=== PATIENT | female | born 1970 | race Caucasian/White ===

== ENCOUNTER → 2016-12-16 | Outpatient (CLI) | payer MEDICAID, BC ==
[2016-12-16 09:07] LABS: Basophils % (A) 1 %; CH 33.4; CHCM 34.3; Eosinophils # (A) 0.1 k/uL (0-0.7); Eosinophils % (A) 1 %; HCT 43.3 % (34.0-46.0); HDW 2.39; HGB 14.4 gm/dL (11.4-16.0); Luc # (Auto) 0.25; Luc % (Auto) 3; Lymphocytes % (A) 56 %; MCH 32.6 pg (25.0-35.0); MCHC 33.3 g/dL (31.0-37.0); MCV 97.9 fL (80.0-100.0); Mean Platelet Volume 7.3; Monocytes # (A) 0.4 k/uL (0-1.0); Monocytes % (A) 5 %; Neutrophils # (A) 3.2 k/uL (1.3-7.7); Neutrophils % (A) 35 %; RBC 4.42 m/uL (3.80-5.40); RDW 12.7 % (11.5-15.5); WBC (Perox) 9.13
[2016-12-16 09:09] LABS: ALT 22 U/L (9-52); AST 15 U/L (14-36); Alkaline Phosphatase 64 U/L (38-126); Anion Gap 8 mmol/L; Blood Urea Nitrogen 12 mg/dL (7-17); Calcium 9.4 mg/dL (8.4-10.2); Carbon Dioxide 27 mmol/L (22-30); Chloride 107 mmol/L (98-107); Glucose 86 mg/dL (74-99); Non-African American GFR(MDRD) >60 (>60 ml/min/1.73 sqM); Sodium 142 mmol/L (137-145); Total Bilirubin 0.6 mg/dL (0.2-1.3); Total Protein 6.6 g/dL (6.3-8.2)
[2016-12-16 10:08] LABS: Manual Review Performed; RBC Morphology Normal; Reactive Lymphocytes Present
== END | disposition home or self-care (01) ==
LOC: LABWHC1 08:23
PROVIDERS: ATTEND Nurse Practitioner Family
DX: R10.84 Generalized abdominal pain (principal); R31.9 Hematuria, unspecified
CPT/HCPCS: 36415; 80053; 85025

== ENCOUNTER → 2016-12-16 | Outpatient (CLI) | payer MEDICAID, BC ==
--- NOTE | 2016-12-16 09:04 | CT ---
EXAMINATION TYPE: CT abdomen pelvis wo con DATE OF EXAM: 12/16/2016 8:30 AM COMPARISON: 08/02/2015 HISTORY: 46-year-old female generalized abdominal pain. Patient complains of right flank pain x5 days . CT DLP: 253.3 mGycm. Automated exposure control for dose reduction was used. TECHNIQUE: Contiguous axial scanning of the abdomen and pelvis without IV contrast. Coronal and sagit bretin reconstructions performed. FINDINGS: Heart is normal size without pericardial effusion. Some strandy atelectasis at the posterior right sherrill ng base without pleural effusion. Noncontrast appearance of the liver, adrenal glands, spleen, and pancreas show no gross abnormality. Cholecystectomy clips are present. The left kidney is absent. Right kidney shows a small 6 mm fat density area at the lateral upper to m id pole that could represent a small AML. No contour deforming mass, nephrolithiasis, or hydronephros is.. No mesenteric or retroperitoneal lymphadenopathy. There are some nonspecific submucosal fat deposition along the ascending colon which could signify pr ior recurrent bouts of inflammation or could be neoplastic due to obesity. Scattered moderate stool b urden. No pericolonic inflammatory change. Bladder is nondistended. Uterus is visualized. Neither ovary is clearly seen and could be obscured by adjacent bowel loops. Pelvic phleboliths. No abnormal fluid collection in the pelvis or pelvic lymph adenopathy. Bones: Gentle dextroconvex curvature centered along the thoracolumbar junction could represent a mild scoliosis. No osseous destructive process. IMPRESSION: 1. Right kidney shows no evidence for nephrolithiasis or hydronephrosis. There may be a tiny 6 mm AM L at the upper to mid pole. 2. The left kidney is absent. Clinically correlate. 3. Submucosal fat deposition along the ascending colon can be seen in the setting of recurrent bouts of prior inflammation or could be idiopathic in the setting of obesity.
== END | disposition home or self-care (01) ==
LOC: RADCTMAIN 08:04
PROVIDERS: ATTEND Family Medicine
DX: R10.84 Generalized abdominal pain (principal); R31.9 Hematuria, unspecified; Z90.5 Acquired absence of kidney
CPT/HCPCS: 36415; 74176; 80053; 85025

== ENCOUNTER → 2016-12-29 | Outpatient (CLI) | payer MEDICAID, BC ==
--- NOTE | 2016-12-29 15:45 | MR ---
EXAMINATION TYPE: MR lumbar spine wo con DATE OF EXAM: 12/29/2016 3:15 PM COMPARISON: 04/21/2016 HISTORY: Lt leg is falling asleep TECHNIQUE: T1 and T2 axial and sagittal images of the lumbar spine are submitted. FINDINGS: There is no abnormal signal seen within the visualized spinal cord or paraspinal soft tissu es. Tarlov's cyst at the S2-3 level. Right kidney appears prominent in size likely representing compe nsatory hypertrophy with a empty left renal fossa. Small fat signal seen in the right kidney by CT sc an is not identified by MRI or included in the [id number]. At L1-2 there is mild hypertrophic change of the facets. No canal stenosis or foraminal encroachment. At L2-3 there is mild hypertrophic change of the facets. No canal stenosis or foraminal encroachment. At L3-4 there is mild hypertrophic change of the facets. No canal stenosis or foraminal encroachment. At L4-5 there is mild hypertrophic change of the facets. No canal stenosis or foraminal encroachment. At L5-S1 there is mild hypertrophic change of the facets. No canal stenosis or foraminal encroachment . IMPRESSION: 1. No disc herniation or canal stenosis. No foraminal encroachment. 2. Multilevel mild facet arthropathy.
== END | disposition home or self-care (01) ==
LOC: RADMRIMAIN 14:32
PROVIDERS: ATTEND Neurological Surgery
DX: M46.96 Unspecified inflammatory spondylopathy, lumbar region (principal); M54.16 Radiculopathy, lumbar region
CPT/HCPCS: 72148

== ENCOUNTER → 2017-03-21 | Outpatient (CLI) | payer MEDICAID, BC ==
--- NOTE | 2017-03-22 10:59 | MM ---
Reason for exam: screening (asymptomatic). Last mammogram was performed 3 years and 7 months ago. History: Patient is postmenopausal. Physical Findings: A clinical breast exam by your physician is recommended on an annual basis and results should be correlated with mammographic findings. MG 3D Screening Mammo W/Cad Bilateral CC and MLO view(s) were taken. Prior study comparison: August 29, 2013, bilateral digital screening mammo w/CAD. The breast tissue is heterogeneously dense. This may lower the sensitivity of mammography. There is no discrete abnormality. ASSESSMENT: Negative, BI-RAD 1 RECOMMENDATION: Routine screening mammogram of both breasts in 1 year.
== END | disposition home or self-care (01) ==
LOC: RADMAMWWP 14:57
PROVIDERS: ATTEND Obstetrics & Gynecology
DX: Z12.31 Encounter for screening mammogram for malignant neoplasm of breast (principal)
CPT/HCPCS: 77063; G0202

== ENCOUNTER 2017-03-30 06:56 | Day surgery (SDC) | payer MEDICAID, BC ==
[2017-03-28 15:57] VITALS: BMI 26.0
[~2017-03-30 06:56] MED LIST: LACTATED RINGERS 1,000 ML IV SCH
[2017-03-30] MEDS ORDERED: LACTATED RINGERS 1,000 ML IV ONE (07:10)
[2017-03-30 07:24] VITALS: TEMP 97.5
[2017-03-30] MEDS ORDERED: LIDOCAINE 1% INJ 10MG/ML (20 ML MDV) ONE (07:36)
[2017-03-30] MEDS ORDERED: PROPOFOL 10 MG/ML 20 ML VIAL IV ONE (07:36)
--- NOTE | 2017-03-30 08:08 | P.OP ---
Date of Procedure: 03/30/17 Preoperative Diagnosis: Change in bowel habits with constipation and right upper quadrant abdominal pain. Postoperative Diagnosis: Rectal polyp otherwise normal colonoscopy. Procedure(s) Performed: Colonoscopy and snare polypectomy. Implants: Anesthesia: MAC Surgeon: John Schreiber Estimated Blood Loss (ml): 0 Pathology: other (Rectal polyp) Condition: stable Disposition: same day Indications for Procedure: The patient is a 26 white female who's had a change in her bowel habits last 3- 4 months with increasing constipation and some right upper quadrant abdominal pain. CT was unremarkable. She did had a previous cholecystectomy appendectomy. Colonoscopy was recommended. Informed consent was obtained. Operative Findings: Small low rectal polyp about 3-4 mm in diameter. Description of Procedure: With the patient in the left lateral position rectal digital examination was normal there were no palpable masses. Mild internal hemorrhoids. The video colonoscope was inserted transanally and advanced all the way to the cecum which was entered and well visualized. Of procedure use a little difficult because of the tortuous redundant colon. The mucosa were thoroughly examined. Findings is a small low rectal polyp about 10 cm from the anal verge about 3-4 mm in diameter. This was removed completely with the snare cautery with good hemostasis. No other abnormalities were noted other than mild internal hemorrhoids. The patient tolerated procedure well without any evident complication. Recommendation. High-fiber diet. Continue with MiraLAX. May benefit from anti -inflammatory. Follow-up colonoscopy in about 5 years. We will see her back in the office in about a week so.
[2017-03-30 08:24] VITALS: BP 104/70; PULSE 73; RESP 18
== END 2017-03-30 08:44 | disposition home or self-care (01) ==
LOC: ORWHC2ENDO 06:56
PROVIDERS: ATTEND Surgery
DX: K62.1 Rectal polyp (principal); K59.00 Constipation, unspecified; K64.8 Other hemorrhoids; K63.89 Other specified diseases of intestine; R10.11 Right upper quadrant pain; Z88.0 Allergy status to penicillin; Z88.1 Allergy status to other antibiotic agents; Z88.5 Allergy status to narcotic agent; Z79.1 Long term (current) use of non-steroidal anti-inflammatories (NSAID); Z79.899 Other long term (current) drug therapy; Z90.49 Acquired absence of other specified parts of digestive tract
CPT/HCPCS: 88305; 45385; J2001; J2704

== ENCOUNTER → 2017-04-19 | Outpatient (CLI) | payer MEDICAID, BC ==
[2017-04-19 14:44] LABS: CH 33.7; CHCM 34.5; HCT 46.4 % (34.0-46.0); HGB 15.6 gm/dL (11.4-16.0); MCHC 33.7 g/dL (31.0-37.0); MCV 98.2 fL (80.0-100.0); Mean Platelet Volume 7.6; RBC 4.72 m/uL (3.80-5.40); RDW 12.4 % (11.5-15.5); WBC 9.4 k/uL (3.8-10.6)
== END | disposition home or self-care (01) ==
LOC: LABWHC1 13:56
PROVIDERS: ATTEND Nurse Practitioner Women's Health
DX: E78.00 Pure hypercholesterolemia, unspecified (principal)
CPT/HCPCS: 36415; 80061; 82306; 82607; 82747; 84439; 84443; 85027

== ENCOUNTER → 2017-10-24 | Outpatient (CLI) | payer MEDICAID, BC ==
[2017-10-24 10:48] LABS: Blood Urea Nitrogen 15 mg/dL (7-17)
--- NOTE | 2017-10-24 13:18 | CT ---
EXAMINATION TYPE: CT abdomen pelvis wo/w con DATE OF EXAM: 10/24/2017 COMPARISON: 12/16/2016 HISTORY: Benign neoplasm of right kidney CT DLP: 744.30 mGycm CONTRAST: CT scan of the abdomen and pelvis is performed without and with with Oral Contrast and without and wi th IV Contrast, patient injected with 100 mL of Omnipaque 300. FINDINGS: LUNG BASES-: No visible nodule. No infiltrate. LIVER/GB: Mild hepatic steatosis is noted. Cholecystectomy changes identified. No space occupying hepatic lesion. Biliary tree is of normal caliber. PANCREAS: No inflammation. No distinct mass. SPLEEN: No splenic enlargement. No lesion seen. ADRENALS: No nodule. No thickening. KIDNEYS/BLADDER: Left-sided nephrectomy changes without evidence for recurrent disease within the le ft renal fossa. Compensatory hypertrophy of the right kidney. Small angiomyolipoma measuring 6 mm mid pole right kidney is unchanged. No hydronephrosis. No nephrolithiasis. Urinary bladder grossly unrem arkable. BOWEL: Normal appendix. Normal bowel caliber. No inflammation. GENITAL ORGANS: No gross abnormality. LYMPH NODES: No greater than 1cm abdominal or pelvic lymph nodes are appreciated. AORTA: No significant abnormality. OSSEOUS STRUCTURES: No significant abnormality is seen. OTHER: No significant additional abnormality is seen. IMPRESSION: 1. Stable postsurgical changes left sided nephrectomy without evidence for recurrent or residual dise ase. 2. Small angiomyolipoma right kidney unchanged from prior study.
== END | disposition home or self-care (01) ==
LOC: RADCTMAIN 10:08
PROVIDERS: ATTEND Urology
DX: D30.01 Benign neoplasm of right kidney (principal); D17.71 Benign lipomatous neoplasm of kidney; Z90.5 Acquired absence of kidney
CPT/HCPCS: 82565; 84520; 74178; 36415; Q9967

== ENCOUNTER → 2017-11-29 | Outpatient (CLI) | payer MEDICAID, BC ==
--- NOTE | 2017-11-29 08:52 | XR ---
EXAMINATION TYPE: XR cervical spine w flex/ext DATE OF EXAM: 11/29/2017 COMPARISON: NONE HISTORY: Chronic neck pain TECHNIQUE: Six views are submitted including flexion-extension lateral views. FINDINGS: The odontoid is intact. There are no compression deformities. The prevertebral soft tissue structur es are within normal limits. There is mild narrowing of the disc space at levels C5-6 and C6-C7. Mil d bilateral foraminal encroachment at these level suspected. Mild facet arthropathy suspected. On extension there is a 2 mm retrolisthesis of C3 on C4 and C4 on C5. On flexion there is a 2 mm anterolisthesis of C3 on C4 and C4 on C5. IMPRESSION: 1. Multilevel degenerative disc disease with alignment alteration upon flexion and extension views as discussed above.
== END | disposition home or self-care (01) ==
LOC: RADXRMAIN 04:20
PROVIDERS: ATTEND Family Medicine
DX: M48.02 Spinal stenosis, cervical region (principal); M50.322 Other cervical disc degeneration at C5-C6 level; M43.12 Spondylolisthesis, cervical region
CPT/HCPCS: 72052

== ENCOUNTER → 2017-12-06 | Outpatient (CLI) | payer MEDICAID, BC ==
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
== END | disposition home or self-care (01) ==
LOC: RADMRIMAIN 21:30
PROVIDERS: ATTEND Neurological Surgery
DX: M99.71 Connective tissue and disc stenosis of intervertebral foramina of cervical region (principal); M47.12 Other spondylosis with myelopathy, cervical region
CPT/HCPCS: 72141

== ENCOUNTER → 2018-03-16 | Outpatient (CLI) | payer MEDICAID, BC ==
--- NOTE | 2018-03-18 08:10 | MR ---
EXAMINATION TYPE: MR thoracic spine wo con DATE OF EXAM: 03/16/2018 COMPARISON: NONE HISTORY: Mid Back pain x3-6 months TECHNIQUE: Multiplanar, multisequence images of the thoracic spine were acquired without intravenous contrast. FINDINGS: The vertebral bodies of the thoracic spine maintain normal vertebral body height and alignment. There is a slight exaggerated thoracic kyphosis. No suspicious extradural fluid collections are seen. Mild epidural lipomatosis. Bone marrow signal is within normal limits with no bone marrow edema seen. Mul tilevel disc desiccation is noted. Paraspinal muscles are unremarkable. At T1-T2, T2-3, T3-T4, and T4-T5 there is no significant disc disease, spinal canal stenosis or neura l foraminal narrowing. At T5-T6 and T6-T7 there is a small broad-based disc bulge without spinal canal stenosis or neurofora marichuy narrowing. At T7-T8 there is a small left paracentral disc herniation creating mild spinal canal stenosis but wi thout neural foraminal narrowing. At T8-T9 there is a very small right paracentral disc herniation without spinal canal stenosis or mariel ral foraminal narrowing. At T9-T10 and T10-T11 there is no significant disc disease, spinal canal stenosis or neural foraminal narrowing. At T11-T12 there is disc desiccation and a broad-based disc bulge without spinal canal stenosis or ne ural foraminal narrowing. Minimal facet arthropathy is seen at this level. At T12-L1 there is no significant disc disease, spinal canal stenosis or neural foraminal narrowing. IMPRESSION: 1. Small left paracentral disc herniation at T7-T8 creating mild spinal canal stenosis. 2. Very small right paracentral disc herniation at T8-T9 without spinal canal stenosis nor neural for aminal narrowing. 3. Mild multilevel degenerative disc disease of the thoracic spine as described above. 4. No evidence of vertebral body height loss or malalignment.
== END | disposition home or self-care (01) ==
LOC: RADMRIMAIN 20:05
PROVIDERS: ATTEND Neurological Surgery
DX: M48.04 Spinal stenosis, thoracic region (principal); M51.14 Intervertebral disc disorders with radiculopathy, thoracic region
CPT/HCPCS: 72146

== ENCOUNTER 2018-07-19 17:48 | Emergency (ER) | payer MEDICAID, BC ==
[2018-07-19 17:52] VITALS: TEMP 97.8
[2018-07-19] MEDS ORDERED: SODIUM CHLORIDE 0.9% 1,000 ML IV STA (18:06)
--- NOTE | 2018-07-19 18:30 | ED ---
General Adult HPI - General Chief complaint: Chest Pain Stated complaint: Chest pain Time Seen by Provider: 07/19/18 17:53 Source: patient, RN notes reviewed, old records reviewed Mode of arrival: ambulatory Limitations: no limitations - History of Present Illness Initial comments: This is a 47-year-old female the ER for evaluation of chest pain. Patient has no cardiac risk factors no high blood pressure control diabetes or any other causes of chest pain. Patient has no change in chest pain currently. Patient has pain 3 days. No travel history no sick contacts no modifying factors for pain - Related Data Home Medications Medication Instructions Recorded Confirmed Escitalopram [Lexapro] 5 mg PO BID@04,1630 07/19/18 07/19/18 Allergies Allergy/AdvReac Type Severity Reaction Status Date / Time Penicillins Allergy Rash/Hives Verified 07/19/18 18:14 erythromycin base AdvReac Nausea & Verified 07/19/18 18:14 Vomiting propoxyphene AdvReac Nausea & Verified 07/19/18 18:14 [From Darvocet-N 100] Vomiting tramadol AdvReac Nausea & Verified 07/19/18 18:14 Vomiting Review of Systems ROS Statement: Those systems with pertinent positive or pertinent negative responses have been documented in the HPI. ROS Other: All systems not noted in ROS Statement are negative. Past Medical History Additional Past Medical History / Comment(s): Left nephrectomy at age 2. History of Any Multi-Drug Resistant Organisms: None Reported Past Surgical History: Section, Cholecystectomy, Orthopedic Surgery Additional Past Surgical History / Comment(s): oopherectomy Past Anesthesia/Blood Transfusion Reactions: No Reported Reaction Past Psychological History: Anxiety Smoking Status: Former smoker Past Alcohol Use History: None Reported Past Drug Use History: None Reported - Past Family History Sister(s) Family Medical History: Cancer Additional Family Medical History / Comment(s): Patient is adopted and is unaware of parents medical history. Patient has 2 boys that are living and well. General Exam Limitations: no limitations General appearance: alert, in no apparent distress Head exam: Present: atraumatic, normocephalic, normal inspection Eye exam: Present: normal appearance, PERRL, EOMI. Absent: scleral icterus, conjunctival injection, periorbital swelling ENT exam: Present: normal exam, mucous membranes moist Neck exam: Present: normal inspection. Absent: tenderness, meningismus, lymphadenopathy Respiratory exam: Present: normal lung sounds bilaterally. Absent: respiratory distress, wheezes, rales, rhonchi, stridor Cardiovascular Exam: Present: regular rate, normal rhythm, normal heart sounds. Absent: systolic murmur, diastolic murmur, rubs, gallop, clicks GI/Abdominal exam: Present: soft, normal bowel sounds. Absent: distended, tenderness, guarding, rebound, rigid Extremities exam: Present: normal inspection, full ROM, normal capillary refill. Absent: tenderness, pedal edema, joint swelling, calf tenderness Back exam: Present: normal inspection Neurological exam: Present: alert, oriented X3, CN II-XII intact Psychiatric exam: Present: normal affect, normal mood Skin exam: Present: warm, dry, intact, normal color. Absent: rash Course Vital Signs 07/19/18 07/19/18 07/19/18 17:50 18:30 18:58 Temperature 97.8 F Pulse Rate 68 65 70 Respiratory 18 18 18 Rate Blood Pressure 141/83 144/62 151/98 O2 Sat by Pulse 99 97 97 Oximetry 07/19/18 07/19/18 19:08 20:37 Temperature Pulse Rate 73 75 Respiratory 18 16 Rate Blood Pressure 138/80 138/63 O2 Sat by Pulse 99 98 Oximetry EKG Findings - EKG Comments: EKG Findings:: EKG shows bradycardia rate of 60, VT 108, QRS 92, QTc 428 Medical Decision Making - Medical Decision Making [age] female the ER for evaluation of chest pain atypical chest pain with no cardiac risk. Patient is CAT scan lab work and EKG are normal. Patient will be discharged home - Lab Data Result diagrams: 07/19/18 18:09 07/19/18 18:09 Lab Results 07/19/18 07/19/18 07/19/18 Range/Units 18:09 18:09 18:09 WBC 6.5 (3.8-10.6) k/uL RBC 4.39 (3.80-5.40) m/uL Hgb 14.0 (11.4-16.0) gm/dL Hct 42.5 (34.0-46.0) % MCV 96.9 (80.0-100.0) fL MCH 31.8 (25.0-35.0) pg MCHC 32.8 (31.0-37.0) g/dL RDW 12.5 (11.5-15.5) % Plt Count 299 (150-450) k/uL Neutrophils % 44 % Lymphocytes % 45 % Monocytes % 6 % Eosinophils % 2 % Basophils % 1 % Neutrophils # 2.8 (1.3-7.7) k/uL Lymphocytes # 3.0 (1.0-4.8) k/uL Monocytes # 0.4 (0-1.0) k/uL Eosinophils # 0.1 (0-0.7) k/uL Basophils # 0.0 (0-0.2) k/uL PT (9.0-12.0) sec INR (<1.2) APTT (22.0-30.0) sec D-Dimer (<0.60) mg/L FEU Sodium 138 (137-145) mmol/L Potassium 4.6 (3.5-5.1) mmol/L Chloride 108 H (98-107) mmol/L Carbon Dioxide 22 (22-30) mmol/L Anion Gap 8 mmol/L BUN 17 (7-17) mg/dL Creatinine 0.68 (0.52-1.04) mg/dL Est GFR (CKD-EPI)AfAm >90 (>60 ml/min/1.73 sqM) Est GFR (CKD-EPI)NonAf >90 (>60 ml/min/1.73 sqM) Glucose 85 (74-99) mg/dL Calcium 9.8 (8.4-10.2) mg/dL Magnesium 1.9 (1.6-2.3) mg/dL Total Bilirubin 0.4 (0.2-1.3) mg/dL AST 27 (14-36) U/L ALT 34 (9-52) U/L Alkaline Phosphatase 74 (38-126) U/L Total Creatine Kinase 86 (30-135) U/L CK-MB (CK-2) 0.7 (0.0-2.4) ng/mL CK-MB (CK-2) Rel Index 0.8 Troponin I <0.012 (0.000-0.034) ng/mL NT-Pro-B Natriuret Pep pg/mL Total Protein 6.9 (6.3-8.2) g/dL Albumin 4.1 (3.5-5.0) g/dL Lipase 73 (23-300) U/L 07/19/18 07/19/18 Range/Units 18:09 18:09 WBC (3.8-10.6) k/uL RBC (3.80-5.40) m/uL Hgb (11.4-16.0) gm/dL Hct (34.0-46.0) % MCV (80.0-100.0) fL MCH (25.0-35.0) pg MCHC (31.0-37.0) g/dL RDW (11.5-15.5) % Plt Count (150-450) k/uL Neutrophils % % Lymphocytes % % Monocytes % % Eosinophils % % Basophils % % Neutrophils # (1.3-7.7) k/uL Lymphocytes # (1.0-4.8) k/uL Monocytes # (0-1.0) k/uL Eosinophils # (0-0.7) k/uL Basophils # (0-0.2) k/uL PT 9.7 (9.0-12.0) sec INR 1.0 (<1.2) APTT 23.1 (22.0-30.0) sec D-Dimer 0.24 (<0.60) mg/L FEU Sodium (137-145) mmol/L Potassium (3.5-5.1) mmol/L Chloride (98-107) mmol/L Carbon Dioxide (22-30) mmol/L Anion Gap mmol/L BUN (7-17) mg/dL Creatinine (0.52-1.04) mg/dL Est GFR (CKD-EPI)AfAm (>60 ml/min/1.73 sqM) Est GFR (CKD-EPI)NonAf (>60 ml/min/1.73 sqM) Glucose (74-99) mg/dL Calcium (8.4-10.2) mg/dL Magnesium (1.6-2.3) mg/dL Total Bilirubin (0.2-1.3) mg/dL AST (14-36) U/L ALT (9-52) U/L Alkaline Phosphatase (38-126) U/L Total Creatine Kinase (30-135) U/L CK-MB (CK-2) (0.0-2.4) ng/mL CK-MB (CK-2) Rel Index Troponin I (0.000-0.034) ng/mL NT-Pro-B Natriuret Pep 118 pg/mL Total Protein (6.3-8.2) g/dL Albumin (3.5-5.0) g/dL Lipase (23-300) U/L - Radiology Data Radiology results: report reviewed (CT angio is negative), image reviewed Disposition Clinical Impression: Chest pain Disposition: HOME SELF-CARE Condition: Good Instructions: Chest Pain (ED), Costochondritis (ED) Is patient prescribed a controlled substance at d/c from ED?: No Referrals: Carlos Lundy Jr, DO [Primary Care Provider] - 1-2 days
--- NOTE | 2018-07-19 18:45 | XR ---
EXAMINATION TYPE: XR chest 2V DATE OF EXAM: 07/19/2018 COMPARISON: NONE HISTORY: Chest pain TECHNIQUE: Frontal and lateral views of the chest are obtained. FINDINGS: Heart and mediastinum are normal. Lungs are clear. Diaphragm is normal. Bony thorax appear s normal. There are chest leads. IMPRESSION: Normal chest.
[2018-07-19 18:52] LABS: Basophils % (A) 1 %; Eosinophils # (A) 0.1 k/uL (0-0.7); Eosinophils % (A) 2 %; HCT 42.5 % (34.0-46.0); Lymphocytes % (A) 45 %; MCH 31.8 pg (25.0-35.0); MCHC 32.8 g/dL (31.0-37.0); MCV 96.9 fL (80.0-100.0); Mean Platelet Volume 6.8; Monocytes # (A) 0.4 k/uL (0-1.0); Monocytes % (A) 6 %; Neutrophils # (A) 2.8 k/uL (1.3-7.7); Neutrophils % (A) 44 %; Platelet Count 299 k/uL (150-450); RBC 4.39 m/uL (3.80-5.40); RDW 12.5 % (11.5-15.5); WBC 6.5 k/uL (3.8-10.6)
[2018-07-19] MEDS ORDERED: NITROGLYCERIN SL TABS 0.4 MG TAB SUBLINGUAL STA (18:59)
[2018-07-19 19:02] LABS: ALT 34 U/L (9-52); AST 27 U/L (14-36); Albumin 4.1 g/dL (3.5-5.0); Alkaline Phosphatase 74 U/L (38-126); Anion Gap 8 mmol/L; Blood Urea Nitrogen 17 mg/dL (7-17); Calcium 9.8 mg/dL (8.4-10.2); Carbon Dioxide 22 mmol/L (22-30); Chloride 108 mmol/L (98-107); Glucose 85 mg/dL (74-99); Lipase 73 U/L (23-300); Magnesium 1.9 mg/dL (1.6-2.3); Potassium 4.6 mmol/L (3.5-5.1); Sodium 138 mmol/L (137-145); Total Bilirubin 0.4 mg/dL (0.2-1.3); Total Protein 6.9 g/dL (6.3-8.2)
[2018-07-19 19:05] LABS: Creatine Kinase 86 U/L (30-135)
[2018-07-19 19:07] LABS: D-Dimer 0.24 mg/L FEU (<0.60); Partial Thromboplastin Time 23.1 sec (22.0-30.0); Prothrombin Time 9.7 sec (9.0-12.0)
[2018-07-19 19:18] LABS: Creatine Kinase MB 0.7 ng/mL (0.0-2.4); Troponin I <0.012 ng/mL (0.000-0.034)
[2018-07-19] MEDS ORDERED: KETOROLAC 30 MG/ML 1 ML VIAL IVP STA (19:34)
--- NOTE | 2018-07-19 20:20 | CT ---
EXAMINATION TYPE: CT angio chest DATE OF EXAM: 07/19/2018 7:54 PM COMPARISON: None HISTORY: Chest pain and shortness of breath x3 days. CT DLP: 255.3 mGycm Automated exposure control for dose reduction was used. CONTRAST: CTA scan of the thorax is performed with IV Contrast, patient injected with 60ml mL of Isovue 370, pu lmonary embolism protocol. There are 3-D post processed images.. FINDINGS: There is slight coarsening of interstitial pulmonary markings in the posterior lung laurent. There is no pulmonary consolidation. There is no evidence of a pulmonary mass. There is no pleural effusion. T here is no mediastinal adenopathy. There are no hilar masses. Heart size is normal. There is no peric ardial effusion. The bony thorax is intact. There are clips from cholecystectomy. Upper abdominal sof t tissues are unremarkable. Thoracic aorta appears normal. There is no evidence of aneurysm or dissection. There is normal contra st opacification of the pulmonary arteries. There are no filling defects. IMPRESSION: COARSE INTERSTITIAL DENSITY IN THE POSTERIOR LUNG LAURENT CONSISTENT WITH SUBSEGMENTAL ATELECTASIS. NO EVIDENCE OF PULMONARY EMBOLISM.
[2018-07-19 20:39] VITALS: BP 138/63; PULSE 75; RESP 16
== END 2018-07-19 20:38 | disposition home or self-care (01) ==
LOC: EC 17:48
DX: R07.89 Other chest pain (principal); F41.9 Anxiety disorder, unspecified; Z87.891 Personal history of nicotine dependence; Z90.5 Acquired absence of kidney; Z90.49 Acquired absence of other specified parts of digestive tract; Z90.721 Acquired absence of ovaries, unilateral; Z98.890 Other specified postprocedural states; Z79.899 Other long term (current) drug therapy; Z88.0 Allergy status to penicillin; Z88.1 Allergy status to other antibiotic agents; Z88.5 Allergy status to narcotic agent
CPT/HCPCS: 36415; 93005; 85379; 83880; 80053; 82550; 82553; 83690; 83735; 84484; 85025; 85610; 85730; 71046; 71275; 99285; 96360; 96361 ×2; J1885; Q9967

== ENCOUNTER → 2018-10-17 | Outpatient (CLI) | payer MEDICAID, BC ==
--- NOTE | 2018-10-18 14:40 | MM ---
Reason for exam: screening (asymptomatic). Last mammogram was performed 1 year and 7 months ago. History: Patient is postmenopausal. Physical Findings: A clinical breast exam by your physician is recommended on an annual basis and results should be correlated with mammographic findings. MG 3D Screening Mammo W/Cad Bilateral CC and MLO view(s) were taken. Prior study comparison: March 21, 2017, bilateral MG 3d screening mammo w/cad. August 29, 2013, bilateral digital screening mammo w/CAD. The breast tissue is heterogeneously dense. This may lower the sensitivity of mammography. There is no discrete abnormality. No significant changes when compared with prior studies. ASSESSMENT: Negative, BI-RAD 1 RECOMMENDATION: Routine screening mammogram of both breasts in 1 year.
== END ==
LOC: RADMAMWWP 16:36
PROVIDERS: ATTEND Family Medicine
DX: Z12.31 Encounter for screening mammogram for malignant neoplasm of breast (principal)
CPT/HCPCS: 77063; 77067

== ENCOUNTER → 2018-10-17 | Outpatient (CLI) | payer MEDICAID, BC ==
[2018-10-17 16:42] LABS: HCT 41.7 % (34.0-46.0); HGB 13.6 gm/dL (11.4-16.0); MCV 94.7 fL (80.0-100.0); RBC 4.41 m/uL (3.80-5.40); WBC 8.2 k/uL (3.8-10.6)
[2018-10-17 16:43] LABS: Basophils # (A) 0.1 k/uL (0-0.2); Basophils % (A) 1 %; Eosinophils # (A) 0.1 k/uL (0-0.7); Eosinophils % (A) 1 %; Lymphocytes # (A) 2.3 k/uL (1.0-4.8); Lymphocytes % (A) 28 %; MCH 30.9 pg (25.0-35.0); MCHC 32.7 g/dL (31.0-37.0); Mean Platelet Volume 6.9; Monocytes # (A) 0.5 k/uL (0-1.0); Monocytes % (A) 6 %; Neutrophils # (A) 5.1 k/uL (1.3-7.7); Neutrophils % (A) 62 %; Platelet Count 264 k/uL (150-450); RDW 12.6 % (11.5-15.5)
[2018-10-18 02:59] LABS: Albumin 4.1 g/dL (3.80-4.90); Albumin/Globulin Ratio 2.41 (1.20-2.10); Anion Gap 11.1 mmol/L (4.00-12.00); Calcium 8.9 mg/dL (8.7-10.3); Carbon Dioxide 20.9 mmol/L (21.6-31.8); Globulin 1.7 g/dL (1.6-3.3); LDL Cholesterol,Calculated 104.2 mg/dL (0.0-131.0); Potassium 4.1 mmol/L (3.5-5.5); Total Bilirubin 0.5 mg/dL (0.3-1.2); Total Protein 5.8 g/dL (6.2-8.2); VLDL Calculation 38.8 mg/dL (5.00-40.00)
[2018-10-18 03:06] LABS: T4, Free (Free Thyroxine) 0.9 ng/dL (0.80-1.80)
== END | disposition home or self-care (01) ==
LOC: LABWHC1 16:23
PROVIDERS: ATTEND Nurse Practitioner Women's Health
DX: Z00.00 Encounter for general adult medical examination without abnormal findings (principal); R61 Generalized hyperhidrosis; R00.2 Palpitations; N95.1 Menopausal and female climacteric states
CPT/HCPCS: 36415; 80053; 80061; 84439; 84443; 85025

== ENCOUNTER → 2018-12-20 | Outpatient (CLI) | payer MEDICAID, BC ==
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
== END ==
LOC: RADMRIMAIN 17:10
PROVIDERS: ATTEND Neurological Surgery
DX: M99.71 Connective tissue and disc stenosis of intervertebral foramina of cervical region (principal); M50.21 Other cervical disc displacement, high cervical region; M47.816 Spondylosis without myelopathy or radiculopathy, lumbar region
CPT/HCPCS: 72141; 72148; 82565; 84520

== ENCOUNTER → 2020-12-04 | Outpatient (CLI) | payer BC ==
--- NOTE | 2020-12-08 13:22 | MM ---
Reason for exam: screening (asymptomatic). Last mammogram was performed 2 years and 2 months ago. History: Patient is postmenopausal. Took hormonal contraceptives for 20 years beginning at age 15. Physical Findings: A clinical breast exam by your physician is recommended on an annual basis and results should be correlated with mammographic findings. MG 3D Screening Mammo W/Cad Bilateral CC and MLO view(s) were taken. Prior study comparison: October 17, 2018, bilateral MG 3d screening mammo w/cad. March 21, 2017, bilateral MG 3d screening mammo w/cad. There are scattered fibroglandular densities. Lateral left CC asymmetric density becomes less defined on 3D images and shows no MLO correlate. Superimposition shadow is suggested. Precautionary 6 month follow up mammogram recommended. ASSESSMENT: Probably benign, BI-RAD 3 RECOMMENDATION: Follow-up diagnostic mammogram of the left breast in 6 months. (3D)
== END | disposition home or self-care (01) ==
LOC: RADMAMWWP 16:09
PROVIDERS: ATTEND Obstetrics & Gynecology
DX: Z12.31 Encounter for screening mammogram for malignant neoplasm of breast (principal)
CPT/HCPCS: 77063; 77067

== ENCOUNTER 2021-02-27 11:41 | Emergency (ER) | payer BC ==
[2021-02-27 11:55] VITALS: BP 124/75; PULSE 71; RESP 16; TEMP 98.7
--- NOTE | 2021-02-27 12:34 | ED ---
General Adult HPI - General Chief complaint: Animal Bite Stated complaint: Cat bite/vaccine reaction Time Seen by Provider: 02/27/21 12:19 Source: patient Mode of arrival: ambulatory Limitations: no limitations - History of Present Illness Initial comments: Patient is a 50-year-old female presenting to the emergency department with complaints of a possible infected cat bite to her left leg. Patient states she got bit by her cat one week ago, she has been keeping it clean, covered and using topical antibiotics but feels like she is getting some aches in her left leg. Patient states she also received her second dose of Covid vaccine yesterday and is complaining of having body aches and feeling feverish. She states she did take her temperature and she does not have a fever but feels feverish, chills. She did take a Tylenol with did seem to help. She was concerned that the cat bite could be causing her symptoms versus Covid vaccine reaction. She denies any chest pressure was of breath, no difficulty breathing. She denies any nausea or vomiting. She has no further complaints at this time. Upon arrival to the ER her vitals are stable. - Related Data Home Medications Medication Instructions Recorded Confirmed Escitalopram [Lexapro] 5 mg PO BID@04,1630 07/19/18 07/19/18 Previous Rx's Medication Instructions Recorded Amoxicillin/Potassium Clav 1 tab PO BID 5 Days #10 tab 02/27/21 [Augmentin 875-125 Tablet] Allergies Allergy/AdvReac Type Severity Reaction Status Date / Time Penicillins Allergy Rash/Hives Verified 02/27/21 11:55 erythromycin base AdvReac Nausea & Verified 02/27/21 11:55 Vomiting propoxyphene AdvReac Nausea & Verified 02/27/21 11:55 [From Darvocet-N 100] Vomiting tramadol AdvReac Nausea & Verified 02/27/21 11:55 Vomiting Review of Systems ROS Statement: Those systems with pertinent positive or pertinent negative responses have been documented in the HPI. ROS Other: All systems not noted in ROS Statement are negative. Past Medical History Past Medical History: No Reported History Additional Past Medical History / Comment(s): Left nephrectomy at age 2. History of Any Multi-Drug Resistant Organisms: None Reported Past Surgical History: Section, Cholecystectomy, Orthopedic Surgery Additional Past Surgical History / Comment(s): oopherectomy, Left nephrectomy at age 2. Past Anesthesia/Blood Transfusion Reactions: No Reported Reaction Past Psychological History: Anxiety Smoking Status: Former smoker Past Alcohol Use History: Rare Past Drug Use History: None Reported - Past Family History Sister(s) Family Medical History: Cancer Additional Family Medical History / Comment(s): Patient is adopted and is unaware of parents medical history. Patient has 2 boys that are living and well. General Exam - General Exam Comments Initial Comments: GENERAL: Patient is well-developed and well-nourished. Patient is nontoxic and in no acute distress. HEAD: Atraumatic, normocephalic. EYES: Pupils equal round and reactive to light, extraocular movements intact, sclera anicteric, conjunctiva are normal. Eyelids were unremarkable. ENT: TMs normal, nares patent, oropharynx clear without exudates. Moist mucous membranes. NECK: Normal range of motion, supple without lymphadenopathy or JVD. LUNGS: Unlabored respirations. Breath sounds clear to auscultation bilaterally and equal. No wheezes rales or rhonchi. HEART: Regular rate and rhythm without murmurs, rubs or gallops. ABDOMEN: Soft, nontender, normoactive bowel sounds. No guarding, no rebound. No masses appreciated. : Deferred MUSCULOSKELETAL: Normal extremities with adequate strength and normal range of motion, no pitting or edema. No clubbing or cyanosis. NEUROLOGICAL: Patient is alert and oriented x 3. Motor and sensory are also intact. Cranial nerves II through XII grossly intact. Symmetrical smile. Normal speech, normal gait. PSYCH: Normal mood, normal affect. SKIN: Warm, Dry, normal turgor, no rashes. Patient has a healing wound on her left lateral lower leg from a cat bite. There is some mild drainage, some very mild surrounding erythema but no spreading erythema, no streaks. No warmth to the area. Limitations: no limitations Course Vital Signs 02/27/21 11:51 Temperature 98.7 F Pulse Rate 71 Respiratory 16 Rate Blood Pressure 124/75 O2 Sat by Pulse 96 Oximetry Medical Decision Making - Medical Decision Making Patient is a 50-year-old female here with concerns of a cat bite she sustained one week ago. Her vital signs are stable, no fevers. She also received the Covid vaccines, second dose yesterday. Generalized body aches. The Bite wound could be very mildly infected, no active drainage, no spreading erythema or streaks. Patient will be started on Augmentin to prevent any further and infection. I also recommended continuing to alternate between Tylenol and ibuprofen for her symptoms. Patient is stable for discharge. Patient is in agreement with this plan of care. Return parameters were discussed with the patient and they verbalized understanding. Case discussed with Dr. Galvin. Disposition Clinical Impression: Cat bite, Body aches after vaccination Disposition: HOME SELF-CARE Condition: Stable Instructions (If sedation given, give patient instructions): Animal Bite (ED) Additional Instructions: Please return to the Emergency Department if symptoms worsen or any other concerns. Continue to alternate between Tylenol and Motrin for symptoms. Take antibiotic as prescribed. Follow-up with your PCP. Prescriptions: Amoxicillin/Potassium Clav [Augmentin 875-125 Tablet] 1 tab PO BID 5 Days #10 tab Is patient prescribed a controlled substance at d/c from ED?: No Referrals: Carlos Lundy Jr, [Primary Care Provider] - 1-2 days Time of Disposition: 12:34
== END 2021-02-27 12:53 | disposition home or self-care (01) ==
LOC: EC 11:41
DX: S81.852D Open bite, left lower leg, subsequent encounter (principal); R52 Pain, unspecified; R68.83 Chills (without fever); T50.B95A Adverse effect of other viral vaccines, initial encounter; F41.9 Anxiety disorder, unspecified; Z87.891 Personal history of nicotine dependence; Z88.0 Allergy status to penicillin; W55.01XD Bitten by cat, subsequent encounter
CPT/HCPCS: 99283

== ENCOUNTER → 2021-09-11 | Outpatient (CLI) | payer BC ==
--- NOTE | 2021-09-11 18:33 | MR ---
EXAMINATION TYPE: MR lumbar spine wo con DATE OF EXAM: 09/11/2021 COMPARISON: 12/12/2018 HISTORY: Low back pain for 3 months Multiplanar multiecho imaging of the lumbar spine without contrast. Lumbar vertebra have normal alignment. Disc spaces are fairly normal. Posterior elements are intact. Neural foramina are widely patent. Lumbar nerve roots appear normal. Disks have normal signal pattern . There is no evidence of lumbar disc herniation. Posterior elements are intact. There is no lumbar p araspinal mass. I see no bony destructive process. Left kidney is absent. There is compensatory hyper trophy of the right kidney. There are sacral cyst at the S2-S3 level noted. IMPRESSION: Negative MR scan of the lumbar spine. No change.
== END ==
LOC: RADMRIMAIN 09:11
PROVIDERS: ATTEND Neurological Surgery
DX: M54.50 Low back pain, unspecified (principal)
CPT/HCPCS: 72148

== ENCOUNTER → 2021-10-30 | Outpatient (CLI) | payer BC, OTHER | END | disposition home or self-care (01) | LOC: LABWHC1 14:56 | PROVIDERS: ATTEND Emergency Medicine | DX: Z20.822 Contact with and (suspected) exposure to COVID-19 (principal) | CPT/HCPCS: 87635 ==

== ENCOUNTER → 2021-11-24 | Outpatient (CLI) | payer BC ==
--- NOTE | 2021-11-25 06:27 | MR ---
EXAMINATION TYPE: MR cspine/tspine wo con DATE OF EXAM: 11/24/2021 COMPARISON: MRI cervical spine December 20, 2018. MRI thoracic spine March 16, 2018 HISTORY: Ataxic gait TECHNIQUE: Multiplanar, multisequence imaging of cervical and thoracic spine are is performed without contrast FINDINGS: Cervical spine: Sagittal images of the cervical spine show the craniocervical junction to remain within normal limits . The cervical and upper thoracic spinal cord remains normal in course, caliber, and signal. Verteb ral alignment is stable. The vertebral body and intravertebral disk heights remaining normal. The aline ne marrow signal intensity remains within normal limits. Axial images show the C2-C3 level to remain within normal limits. Axial images at C3-C4 level redemonstrate a broad-based left paracentral/foraminal disc protrusion wi th uncovertebral facet degenerative changes effacing the anterolateral thecal sac and causing mild le ft greater than right neural foraminal narrowing, no significant change from prior study on axial debo ges. Axial images at C4-C5 level show uncovertebral facet degenerative changes bilaterally and minimal bro ad disc bulge minimally effacing anterior thecal sac and causing mild bilateral neural foraminal narr owing, no significant change from prior. Axial images at C5-C6 level redemonstrate mild broad-based posterior disc protrusion effacing the ant erior thecal sac and causing mild to moderate left greater than right bilateral neural foraminal narr owing, no significant change from prior. Axial images at C6-C7 level show left foraminal disc protrusion minimally effacing the anterolateral thecal sac and causing moderate to advanced left-sided neural foraminal narrowing on axial images 15 and 16, right-sided neural foramina is patent. No significant change from prior. Axial images at C7-T1 level remain within normal limits. IMPRESSION: Multilevel degenerative changes as detailed above without significant change from prior M RI. Thoracic spine: S-shaped scoliotic curvature redemonstrated on coronal images. Spinal cord shows normal caliber and signal as it courses the thoracic spine. Vertebral body heights remain satisfactory. Redemonstration of mild to moderate multilevel anterior spurring and some scattered mild areas of disc space narrowi ng. Bone marrow signal intensity is preserved. Tiny posterior disc herniations efface the anterior th ecal sac at several levels for reference T7-T8 level image 7 series 1401. Axial images at T2-T3 level show tiny right paracentral disc protrusion minimally effacing anterolate ral thecal sac axial image 15 new from prior. Axial images at T5-T6 and T6-T7 levels show tiny central disc protrusions minimally effacing anterior thecal sac, no significant change from prior. Axial images at T7-T8 level redemonstrate left paracentral disc protrusion effacing the anterolateral thecal sac, no significant change from prior. Axial images at T8-T9 level redemonstrate tiny right paracentral disc protrusion mildly effacing the anterolateral thecal sac thought stable. Axial images at T11-T12 level redemonstrate mild broad disc bulge minimally effacing anterior thecal sac. Remainder axial levels remain within normal limits. Visualized upper abdomen and thorax show no obvious new abnormality. IMPRESSION: Multilevel degenerative changes as detailed above, largest disc herniation redemonstrated T7-T8 level. No significant change or degenerative progression from 2018 MRI
== END | disposition home or self-care (01) ==
LOC: RADMRIMAIN 17:12
PROVIDERS: ATTEND Neurological Surgery
DX: M51.24 Other intervertebral disc displacement, thoracic region (principal); M47.814 Spondylosis without myelopathy or radiculopathy, thoracic region; M47.812 Spondylosis without myelopathy or radiculopathy, cervical region
CPT/HCPCS: 72141; 72146

== ENCOUNTER → 2022-09-29 | Outpatient (CLI) | payer BC ==
--- NOTE | 2022-09-30 08:43 | MM ---
Reason for Exam: Screening (asymptomatic). Last mammogram was performed 1 year(s) and 10 month(s) ago. Patient History: Menarche at age 12. First Full-Term at age 22. Left ovary removed at age 37. Right ovary removed at age 37. Postmenopausal. Hormonal Contraceptives, starting at age 15 for 20 years. Estrogen and Progesterone, starting at age 51. Risk Values: Rosemary 5 year model risk: 0.9%. NCI Lifetime model risk: 7.8%. Prior Study Comparison: 03/21/2017 Bilateral Screening Mammogram, [facility]. 10/17/2018 Bilateral Screening Mammogram, [facility]. 12/04/2020 Bilateral Screening Mammogram, [facility]. Tissue Density: The breast tissue is heterogeneously dense. This may lower the sensitivity of mammography. Findings: Analyzed By CAD. There is no suspicious group of microcalcifications or new suspicious mass in either breast. Overall Assessment: Benign, BI-RAD 2 Management: Screening Mammogram of both breasts in 1 year. A clinical breast exam by your physician is recommended on an annual basis and results should be correlated with mammographic findings. Electronically signed and approved by: Talon Henderson D.O.
== END | disposition home or self-care (01) ==
LOC: RADMAMWWP 16:51
PROVIDERS: ATTEND Obstetrics & Gynecology
DX: Z12.31 Encounter for screening mammogram for malignant neoplasm of breast (principal); Z78.0 Asymptomatic menopausal state
CPT/HCPCS: 77063; 77067

== ENCOUNTER → 2022-10-06 | Outpatient (CLI) | payer BC ==
[2022-10-06 19:38] LABS: Basophils # (A) 0.08 X 10*3/uL (0.00-0.10); Basophils % (A) 1.1 %; Eosinophils # (A) 0.31 X 10*3/uL (0.04-0.35); Eosinophils % (A) 4.2 %; HCT 43.7 % (37.2-46.3); HGB 14.1 g/dL (12.0-15.0); Immature Grans, Automated 0.5 %; Lymphocytes # (A) 2.88 X 10*3/uL (0.90-5.00); Lymphocytes % (A) 38.9 %; MCH 31.3 pg (27.0-32.0); MCHC 32.3 g/dL (32.0-37.0); MCV 97.1 fL (80.0-97.0); Mean Platelet Volume 10.3 fL (9.5-12.2); Monocytes # (A) 0.47 X 10*3/uL (0.20-1.00); Monocytes % (A) 6.3 %; NRBC Per 100 WBC 0 /100 WBCS (0.0-0.0); Neutrophils # (A) 3.63 X 10*3/uL (1.80-7.70); Platelet Count 367 X 10*3/uL (140-440); RDW 12.9 % (11.5-14.5); WBC 7.41 X 10*3/uL (4.50-10.00)
[2022-10-06 22:39] LABS: African American GFR (CKD) 113.3 (60.0-200.0); Albumin 4.1 g/dL (3.8-4.9); Albumin/Globulin Ratio 1.82 (1.60-3.17); Anion Gap 11.7 mmol/L (10.00-18.00); BUN/Creat Ratio 11.91 Ratio (12.00-20.00); Blood Urea Nitrogen 8.5 mg/dL (9.0-27.0); Calcium 9.7 mg/dL (8.7-10.3); Carbon Dioxide 24.2 mmol/L (20.0-27.5); Globulin 2.3 g/dL (1.6-3.3); Non-African American GFR(CKD) 97.8 (60.0-200.0); Potassium 4.3 mmol/L (3.5-5.5); T4, Free (Free Thyroxine) 1.21 ng/dL (0.800-1.800); Total Bilirubin 0.3 mg/dL (0.30-1.20); Total Protein 6.4 g/dL (6.2-8.2)
== END | disposition home or self-care (01) ==
LOC: LABWHC1 10:46
PROVIDERS: ATTEND Nurse Practitioner Family
DX: R53.83 Other fatigue (principal); Z86.19 Personal history of other infectious and parasitic diseases
CPT/HCPCS: 36415; 80053; 84439; 84443; 84484; 85025; 86645; 86665

== ENCOUNTER 2023-12-14 11:56 | Emergency (ER) | payer BC ==
[2023-12-14 12:11] VITALS: BP 161/81; PULSE 84; RESP 16; TEMP 97.8
[2023-12-14] MEDS: IBUPROFEN 600 MG TAB PO STA (13:08)
--- NOTE | 2023-12-14 13:11 | US ---
EXAMINATION TYPE: US venous doppler duplex LE LT DATE OF EXAM: 12/14/2023 12:35 PM COMPARISON: US CLINICAL INDICATION: Female, 53 years old with history of eval dvt; Left leg pain SIDE PERFORMED: Left TECHNIQUE: The lower extremity deep venous system is examined utilizing real time linear array sonog david with graded compression, doppler sonography and color-flow sonography. VESSELS IMAGED: Common Femoral Vein Deep Femoral Vein Greater Saphenous Vein * Femoral Vein Popliteal Vein Small Saphenous Vein * Proximal Calf Veins (* superficial vessels) Left Leg: Negative for DVT IMPRESSION: Grayscale, color doppler, spectral doppler imaging performed of the deep veins of the lo wer extremities. There is normal flow, compressibility, vascular waveforms.
--- NOTE | 2023-12-14 13:23 | ED ---
General Adult HPI - General Chief complaint: Extremity Problem,Nontraumatic Stated complaint: blood clot Time Seen by Provider: 12/14/23 12:05 Source: patient Mode of arrival: ambulatory Limitations: no limitations - History of Present Illness Initial comments: Patient is a 53-year-old female sent to the emergency department for evaluation of possible DVT in the left lower extremity. Was notified by Dr. Lundy. Patient has been having spasms in bilateral lower extremities but now is more isolated to the left lower extremity in the calf with tenderness. Has a remote history of knee surgery on that knee. Denies any other acute complaints. Denies chest pain, shortness of breath. Denies any fevers or chills or cough. No other acute complaints at this time. Presents for ultrasound of the left lower extremity. - Related Data Home Medications Medication Instructions Recorded Confirmed Escitalopram [Lexapro] 5 mg PO BID@04,1630 07/19/18 07/19/18 Previous Rx's Medication Instructions Recorded Amoxicillin/Potassium Clav 1 tab PO BID 5 Days #10 tab 02/27/21 [Augmentin 875-125 Tablet] Allergies Allergy/AdvReac Type Severity Reaction Status Date / Time Penicillins Allergy Rash/Hives Verified 12/14/23 11:59 erythromycin base AdvReac Nausea & Verified 12/14/23 11:59 Vomiting propoxyphene AdvReac Nausea & Verified 12/14/23 11:59 [From Darvocet-N 100] Vomiting tramadol AdvReac Nausea & Verified 12/14/23 11:59 Vomiting Review of Systems ROS Statement: Those systems with pertinent positive or pertinent negative responses have been documented in the HPI. Review of Systems: CONST: Denies fever EYES: Denies blurry vision ENT: Denies nasal congestion C/V: Denies Chest pain RESP: Denies shortness of breath GI: Denies abdominal pain : Denies dysuria SKIN: Denies rash. MSK: Endorses left calf pain NEURO: Denies headache ROS Other: All systems not noted in ROS Statement are negative. Past Medical History Past Medical History: No Reported History Additional Past Medical History / Comment(s): Left nephrectomy at age 2. History of Any Multi-Drug Resistant Organisms: None Reported Past Surgical History: Section, Cholecystectomy, Orthopedic Surgery Additional Past Surgical History / Comment(s): oopherectomy, Left nephrectomy at age 2. Past Anesthesia/Blood Transfusion Reactions: No Reported Reaction Past Psychological History: Anxiety Smoking Status: Former smoker Past Alcohol Use History: Rare Past Drug Use History: None Reported - Past Family History Sister(s) Family Medical History: Cancer Additional Family Medical History / Comment(s): Patient is adopted and is unaw are of parents medical history. Patient has 2 boys that are living and well. General Exam - General Exam Comments Initial Comments: General: Appears in no acute distress. HEAD: Normal with no signs of head trauma. EYES: EOMI ENT: Hearing grossly intact, normal oropharynx. RESPIRATORY: Clear breath sounds bilaterally. No wheezes, rales, or rhonchi. C/V: Regular rate and rhythm. S1 and S2 auscultated, no edema, peripheral pulses 2+ and intact throughout ABD: Abd is soft, nontender, nondistended EXT: Normal range of motion, no obvious deformity. Left calf tenderness to palpation. No significant edema or skin changes. SKIN: No rashes or lesions observed on exposed skin. NEURO: Alert and oriented x 4. Limitations: no limitations Course Vital Signs 12/14/23 11:57 Temperature 97.8 F Pulse Rate 84 Respiratory 16 Rate Blood Pressure 161/81 Medical Decision Making - Medical Decision Making Was pt. sent in by a medical professional or institution (, PA, CRANE MAN, urgent care, hospital, or detention...) When possible be specific @ -Sent from Dr. Lundy's office for evaluation for possible DVT. Did you speak to anyone other than the patient for history (EMS, parent, family, police, friend...)? What history was obtained from this source @ -No Did you review nursing and triage notes (agree or disagree)? Why? @ -I reviewed and agree with nursing and triage notes Were old charts reviewed (outside hosp., previous admission, EMS record, old EKG, old radiological studies, urgent care reports/EKG's, detention records)? Report findings @ -Old charts reviewed Differential Diagnosis (chest pain, altered mental status, abdominal pain women, abdominal pain men, vaginal bleeding, weakness, fever, dyspnea, syncope, headache, dizziness, GI bleed, back pain, seizure, CVA, palpatations, mental health, musculoskeletal)? @ -DVT, muscle spasm, cellulitis. This list is not all inclusive. EKG interpreted by me (3pts min.). @ -None done X-rays interpreted by me (1pt min.). @ -None done CT interpreted by me (1pt min.). @ -None done U/S interpreted by me (1pt. min.). @ -Ultrasound of the left lower extremity revealed no obvious evidence of DVT. What testing was considered but not performed or refused? (CT, X-rays, U/S, labs)? Why? @ -None What meds were considered but not given or refused? Why? @ -None Did you discuss the management of the patient with other professionals (professionals i.e. , PA, CRANE MAN, lab, RT, psych nurse, social media designer, decal transferrer, teacher, cash management officer, director case management)? Give summary @ -I discussed with Dr. Lundy who requested venous duplex of the left lower extremity to rule out DVT. We both agree that patient does not seem to have a PE. Was smoking cessation discussed for >3mins.? @ -No Was critical care preformed (if so, how long)? @ -No Were there social determinants of health that impacted care today? How? (Homelessness, low income, unemployed, alcoholism, drug addiction, transportation, low edu. Level, literacy, decrease access to med. care, care home, rehab)? @ -No Was there de-escalation of care discussed even if they declined (Discuss DNR or withdrawal of care, Hospice)? DNR status @ -No What co-morbidities impacted this encounter? (DM, HTN, Smoking, COPD, CAD, Cancer, CVA, ARF, Chemo, Hep., AIDS, mental health diagnosis, sleep apnea, morbid obesity)? @ -None Was patient admitted / discharged? Hospital course, mention meds given and route, prescriptions, significant lab abnormalities, going to OR and other pertinent info. @ -Based on the patient's presentation and physical exam, patient presents emergency department complaining of left lower leg spasm versus pain. Was sent in for DVT rule out. Has no symptoms concerning for PE at this time. Will obtain venous duplex of the left lower extremity. Patient was in agreement this plan. Vital signs within acceptable limits. She will be given Motrin for analgesia. DVT ultrasound negative. She will be discharged home at this time. Likely diagnosis is muscle spasm. She expressed understanding was in agreement the plan. She will follow-up with Dr. Lundy. I instructed the patient to follow up with their PCP in the next 1-3 days. I explained that the patient should return to the emergency department if they experience any worsening symptoms. Strict return precautions were discussed with the patient. The patient expressed understanding of these instructions. I answered all questions that the patient had. The patient was discharged home in good condition with their prescriptions and follow up information. Undiagnosed new problem with uncertain prognosis? @ -No Drug Therapy requiring intensive monitoring for toxicity (Heparin, Nitro, Insulin, Cardizem)? @ -No Were any procedures done? @ -No Diagnosis/symptom? @ -Left leg muscle spasm Acute, or Chronic, or Acute on Chronic? @ -Acute Uncomplicated (without systemic symptoms) or Complicated (systemic symptoms)? @ -Uncomplicated Side effects of treatment? @ -No Exacerbation, Progression, or Severe Exacerbation? @ -No Poses a threat to life or bodily function? How? (Chest pain, [place], [place], pneumonia, PE, COPD, DKA, ARF, appy, cholecystitis, CVA, Diverticulitis, Homicidal, Suicid al, threat to staff... and all critical care pts) @ -No Disposition Clinical Impression: Muscle spasm of left calf Disposition: HOME SELF-CARE Condition: Good Instructions (If sedation given, give patient instructions): Muscle Spasm (ED) Is patient prescribed a controlled substance at d/c from ED?: No Referrals: Carlos Lundy Jr, [Primary Care Provider] - 1-2 days Time of Disposition: 13:20
== END 2023-12-14 13:31 | disposition home or self-care (01) ==
LOC: EC 11:56
DX: M62.831 Muscle spasm of calf (principal); F41.9 Anxiety disorder, unspecified; Z79.899 Other long term (current) drug therapy; Z87.891 Personal history of nicotine dependence; Z88.0 Allergy status to penicillin; Z88.1 Allergy status to other antibiotic agents; Z88.5 Allergy status to narcotic agent; Z88.8 Allergy status to other drugs, medicaments and biological substances; Z90.49 Acquired absence of other specified parts of digestive tract
CPT/HCPCS: 99283

== ENCOUNTER → 2024-02-15 | Outpatient (CLI) | payer BC ==
[2024-02-15 10:12] LABS: Basophils # (A) 0.1 k/uL (0-0.2); Basophils % (A) 1 %; Eosinophils # (A) 0.1 k/uL (0-0.7); Eosinophils % (A) 2 %; HCT 43.6 % (34.0-46.0); HGB 14.4 gm/dL (11.4-16.0); Lymphocytes # (A) 3.7 k/uL (1.0-4.8); Lymphocytes % (A) 46 %; MCH 31.6 pg (25.0-35.0); MCV 95.6 fL (80.0-100.0); Mean Platelet Volume 8.1; Monocytes # (A) 0.4 k/uL (0-1.0); Monocytes % (A) 5 %; Neutrophils # (A) 3.5 k/uL (1.3-7.7); Neutrophils % (A) 44 %; Platelet Count 299 k/uL (150-450); RBC 4.56 m/uL (3.80-5.40); RDW 12.9 % (11.5-15.5)
[2024-02-15 10:38] LABS: ALT 31 U/L (4-34); AST 26 U/L (14-36); African American GFR (CKD) >90 (>60 ml/min/1.73 sqM); Albumin 4.2 g/dL (3.5-5.0); Albumin/Globulin Ratio 1.5; Alkaline Phosphatase 90 U/L (38-126); Amylase 79 U/L (30-110); Anion Gap 6 mmol/L; Blood Urea Nitrogen 12 mg/dL (7-17); C Reactive Protein <0.5 mg/dL (<1.0); Calcium 9.5 mg/dL (8.4-10.2); Carbon Dioxide 28 mmol/L (22-30); Chloride 105 mmol/L (98-107); Globulin 2.8 g/dL; Glucose 96 mg/dL (74-99); Lipase 251 U/L (23-300); Non-African American GFR(CKD) >90 (>60 ml/min/1.73 sqM); Potassium 4.5 mmol/L (3.5-5.1); Sodium 139 mmol/L (137-145); Total Bilirubin 0.7 mg/dL (0.2-1.3)
[2024-02-15 10:51] LABS: Creatine Kinase 110 U/L (30-135)
--- NOTE | 2024-02-21 14:58 | CT ---
EXAMINATION TYPE: CT abdomen pelvis wo/w con CT DLP: 2729 mGycm, Automated exposure control for dose reduction was used. DATE OF EXAM: 02/15/2024 11:29 AM COMPARISON: CT abdomen pelvis most recent from CLINICAL INDICATION:Female, 53 years old with history of R10.84 GENERALIZED ABDOMINAL PAIN; Generaliz ed abdominal pain, RLQ pain. Hx single kidney, partial hysterectomy, hayden, appy. TECHNIQUE: Axial CT abdomen pelvis wo/w con;Sagittal and coronal reformats were created on a [employer] workstation. Contrast used:100 mL of Isovue 300 with IV Contrast, (none if empty) Oral contrast used: with Oral Contrast (none if empty) FINDINGS: LOWER CHEST: Unremarkable ABDOMEN LIVER: Unremarkable GALLBLADDER AND BILE DUCTS: Cholecystectomy clips are seen in the gallbladder fossa. PANCREAS: Unremarkable. SPLEEN: Unremarkable. ADRENAL GLANDS: Unremarkable. KIDNEYS AND URETERS: The left kidney is absent. No evidence of hydronephrosis or renal calculus in th e right kidney. The right ureter is unremarkable PELVIS BLADDER: Unremarkable REPRODUCTIVE: Unremarkable. ABDOMEN & PELVIS STOMACH AND BOWEL: Stomach and duodenum are unremarkable. The appendix is surgically absent. No kirit dence of bowel obstruction. PERITONEUM/RETROPERITONEUM: No evidence of pneumoperitoneum or free fluid. VASCULATURE: No evidence of aortic aneurysm. MUSCULOSKELETAL: No acute osseous abnormalities LYMPH NODES: No gross evidence for lymphadenopathy. SOFT TISSUE/ABDOMINAL WALL: Unremarkable IMPRESSION: 1. No acute process is detected. 2. Status post appendectomy. Status post cholecystectomy.
== END | disposition home or self-care (01) ==
LOC: RADCTMAIN 08:55
PROVIDERS: ATTEND Family Medicine
DX: R10.84 Generalized abdominal pain (principal); Z90.49 Acquired absence of other specified parts of digestive tract
CPT/HCPCS: 82552; 80053; 82150; 82550 ×2; 83605; 83690; 85025; 86140; 74178; 36415; Q9967

== ENCOUNTER 2024-04-09 05:51 | Emergency (ER) | payer BC ==
[2024-04-09 05:55] VITALS: TEMP 98.7
[2024-04-09] MEDS: HYDROmorphone 1 MG/ML 1 ML SYRINGE IVP STA (06:10)
--- NOTE | 2024-04-09 06:50 | ED ---
Lower Extremity Injury HPI - General Chief Complaint: Extremity Injury, Lower Stated Complaint: left foot swelling Time Seen by Provider: 04/09/24 05:53 Source: patient, RN notes reviewed Mode of arrival: wheelchair Limitations: no limitations - History of Present Illness Initial Comments: 53-year-old female presents emergency department with chief complaint of left ankle pain, swelling. Patient states that she had surgery on Monday. She states that she has a temporary plaster cast in which she had increasing swelling, pain and pressure. Patient states she is currently on oxycodone 5 mg which is not helping her pain. She has had prior knee surgery multiple times in the left and she has chronic swelling from this. - Related Data Home Medications Medication Instructions Recorded Confirmed Escitalopram [Lexapro] 5 mg PO BID@04,1630 07/19/18 07/19/18 Previous Rx's Medication Instructions Recorded Amoxicillin/Potassium Clav 1 tab PO BID 5 Days #10 tab 02/27/21 [Augmentin 875-125 Tablet] oxyCODONE HCL/ACETAMINOPHEN 1 tab PO Q4HR PRN 3 Days #18 tab 04/09/24 [Percocet 10-325 mg] Allergies Allergy/AdvReac Type Severity Reaction Status Date / Time Penicillins Allergy Rash/Hives Verified 12/14/23 11:59 erythromycin base AdvReac Nausea & Verified 12/14/23 11:59 Vomiting propoxyphene AdvReac Nausea & Verified 12/14/23 11:59 [From Darvocet-N 100] Vomiting tramadol AdvReac Nausea & Verified 12/14/23 11:59 Vomiting Review of Systems ROS Statement: Those systems with pertinent positive or pertinent negative responses have been documented in the HPI. ROS Other: All systems not noted in ROS Statement are negative. Past Medical History Past Medical History: No Reported History Additional Past Medical History / Comment(s): Left nephrectomy at age 2. History of Any Multi-Drug Resistant Organisms: None Reported Past Surgical History: Section, Cholecystectomy, Orthopedic Surgery Additional Past Surgical History / Comment(s): oopherectomy, Left nephrectomy at age 2. Past Anesthesia/Blood Transfusion Reactions: No Reported Reaction Past Psychological History: Anxiety Smoking Status: Former smoker Past Alcohol Use History: Rare Past Drug Use History: None Reported - Past Family History Sister(s) Family Medical History: Cancer Additional Family Medical History / Comment(s): Patient is adopted and is unaware of parents medical history. Patient has 2 boys that are living and well. General Exam Limitations: no limitations General appearance: alert, in no apparent distress Head exam: Present: atraumatic, normocephalic, normal inspection Respiratory exam: Present: normal lung sounds bilaterally. Absent: respiratory distress, wheezes, rales, rhonchi, stridor Cardiovascular Exam: Present: regular rate, normal rhythm, normal heart sounds. Absent: systolic murmur, diastolic murmur, rubs, gallop, clicks Extremities exam: Present: other (There is a plaster cast on the left toes are exposed in which cap refill is present, splint was removed sutures intact there is mild erythema along the lateral foot by the fifth digit no drainage from sores or incisions) Course Vital Signs 04/09/24 05:53 Temperature 98.7 F Pulse Rate 113 H Respiratory 20 Rate Blood Pressure 129/81 O2 Sat by Pulse 96 Oximetry Procedures - Orthopedic Splinting/Casting Injury #1 Side: left Lower Extremity Injury Location: short leg, ankle Lower Extremity Immobilizer: posterior splint, stirrup splint, synthetic pre- padded splint Medical Decision Making - Medical Decision Making Was pt. sent in by a medical professional or institution (ABRIL Lehman, FURNACE UNLOADER, urgent care, hospital, or senior care...) When possible be specific @ -No Did you speak to anyone other than the patient for history (EMS, parent, family, police, friend...)? What history was obtained from this source @ -No Did you review nursing and triage notes (agree or disagree)? Why? @ -I reviewed and agree with nursing and triage notes Were old charts reviewed (outside hosp., previous admission, EMS record, old EKG, old radiological studies, urgent care reports/EKG's, senior care records)? Report findings @ -Reviewed x-rays from surgery at [facility] Differential Diagnosis (chest pain, altered mental status, abdominal pain women, abdominal pain men, vaginal bleeding, weakness, fever, dyspnea, syncope, headache, dizziness, GI bleed, back pain, seizure, CVA, palpatations, mental health, musculoskeletal)? @ -Ankle fracture, leg swelling, leg pain, compartment syndrome EKG interpreted by me (3pts min.). @ -None X-rays interpreted by me (1pt min.). @ -None done CT interpreted by me (1pt min.). @ -None done U/S interpreted by me (1pt. min.). @ -None done What testing was considered but not performed or refused? (CT, X-rays, U/S, labs)? Why? @ -None What meds were considered but not given or refused? Why? @ -None Did you discuss the management of the patient with other professionals (professionals i.e. Dr., PA, FURNACE UNLOADER, lab, RT, psych nurse, social and human services assistant, high school teacher, teacher, law enforcement officer, case hardener)? Give summary @ -No Was smoking cessation discussed for >3mins.? @ -No Was critical care preformed (if so, how long)? @ -No Were there social determinants of health that impacted care today? How? (Homelessness, low income, unemployed, alcoholism, drug addiction, transportation, low edu. Level, literacy, decrease access to med. care, nursing home, rehab)? @ -No Was there de-escalation of care discussed even if they declined (Discuss DNR or withdrawal of care, Hospice)? DNR status @ -No What co-morbidities impacted this encounter? (DM, HTN, Smoking, COPD, CAD, Cancer, CVA, ARF, Chemo, Hep., AIDS, mental health diagnosis, sleep apnea, morbid obesity)? @ -None Was patient admitted / discharged? Hospital course, mention meds given and route, prescriptions, significant lab abnormalities, going to OR and other pertinent info. @ -Discharge patient temporary cast, splint was removed secondary to increasing pressure, swelling causing compression of the foot and ankle. Patient did have notable areas on the skin that showed mild irritation, skin breakdown. Patient had splint left off for 30 minutes symptoms resolved new splint was applied with no complications. Patient was discharged in stable condition to remain nonweightbearing she is to follow-up with Dr. Browne in [place]. Undiagnosed new problem with uncertain prognosis? @ -No Drug Therapy requiring intensive monitoring for toxicity (Heparin, Nitro, Insulin, Cardizem)? @ -No Were any procedures done? @ -No Diagnosis/symptom? @ -Ankle fracture, leg edema Acute, or Chronic, or Acute on Chronic? @ -Acute Uncomplicated (without systemic symptoms) or Complicated (systemic symptoms)? @ -Uncomplicated Side effects of treatment? @ -No Exacerbation, Progression, or Severe Exacerbation? @ -No Poses a threat to life or bodily function? How? (Chest pain, [place], [place], pneumonia, PE, COPD, DKA, ARF, appy, cholecystitis, CVA, Diverticulitis, Homicidal, Suicidal, threat to staff... and all critical care pts) @ -No Disposition Clinical Impression: Status post ORIF of fracture of ankle, Leg edema, left Disposition: HOME SELF-CARE Condition: Stable Instructions (If sedation given, give patient instructions): ORIF of an Ankle Fracture (DC) Additional Instructions: Please return to the Emergency Department if symptoms worsen or any other concerns. Prescriptions: oxyCODONE HCL/ACETAMINOPHEN [Percocet 10-325 mg] 1 tab PO Q4HR PRN 3 Days #18 tab PRN Reason: Pain Is patient prescribed a controlled substance at d/c from ED?: Yes When asked, does pt state using other controlled substances?: No If prescribed controlled substance>3 days was MAPS reviewed?: Yes If opioid is for acute pain is fill amount 7 days or less?: Yes If Rx opioid, was Start Talking consent form obtained?: Yes Referrals: Carlos Lundy Jr, [Primary Care Provider] - 1-2 days Time of Disposition: 07:44
[2024-04-09 08:16] VITALS: BP 124/84; PULSE 98; RESP 18
== END 2024-04-09 08:16 | disposition home or self-care (01) ==
LOC: EC 05:51
DX: S82.892A Other fracture of left lower leg, initial encounter for closed fracture (principal); R60.0 Localized edema; Z87.891 Personal history of nicotine dependence; Z88.0 Allergy status to penicillin; Z88.1 Allergy status to other antibiotic agents; Z88.5 Allergy status to narcotic agent; X58.XXXA Exposure to other specified factors, initial encounter
CPT/HCPCS: 99283; 96374; 29515; J1170